=== PATIENT | female | born 1950 | race Caucasian/White ===

== ENCOUNTER 2023-12-02 20:21 | Emergency (ER) | payer MEDICARE, BC, SELFPAY ==
[2023-12-02 20:21] VITALS: BMI 24.9
[2023-12-02 20:31] VITALS: BP 101/74
--- NOTE | 2023-12-02 22:13 | ED.GENMED ---
History of Present Illness
General
Chief Complaint: Musculo-Skeletal Complaint
Source: patient
Exam Limitations: none
Time Seen by Provider: 12/02/23 22:01
Nursing documentation reviewed up to this point in time: agreed with
History of Present Illness
History of Present Illness:
Pleasant 73-year-old female that presents with left ankle pain. She was walking her dog on a leash when the leash got caught around her's foot. The dog sprinted away from her when her grandkids arrived, pulling her to the ground.
Review of Systems
Review of Systems
Allergies reviewed?: Yes
All Other Systems: ROS reviewed and negative except as documented in HPI and ROS
Constitutional: Reports no symptoms
EENT: Reports no symptoms
Respiratory: Reports no symptoms
Cardiac: Reports no symptoms
ABD/GI: Reports no symptoms
: Reports no symptoms
Musculoskeletal: Reports joint pain and joint swelling
Skin: Reports no symptoms
Neurological: Reports no symptoms
Endocrine: Reports no symptoms
Hematologic/Lymphatic: Reports no symptoms
Psychiatric: Reports anxiety
Phy Exam
General Physical Exam
General Presentation: well appearing and mild distress (Ice located on her left ankle)
General age: appears stated age
General Skin: warm and dry
General Habitus: normal
General Mental: alert
General Hydration: appears well hydrated
ENT Exam
ENT Exam: swallowing well and other (Dentition intact)
Cardiovascular Exam
Cardiovascular Exam: regular rate/rhythm and no edema
Pulmonary Exam
Pulmonary Exam: lungs clear and no respiratory distress
Neurological Exam
Neurological Exam: alert and oriented x3
Musculoskeletal Exam
Musculoskeletal Exam: no edema, joint swelling and neuro vasc intact (Good distal pulses)
Skin Exam
Skin Exam: normal color and warm/dry
Psychiatric Exam
Psychiatric Exam: normal mood/affect
Course
Orders/Labs/Results
Orders:
Orders
12/02/23 20:33
CR Ankle - Left Min 3 Views Urgent
Comment:
Reason For Exam: injury, fall
12/02/23 22:26
Fentanyl Citrate/Pf [Sublimaze] 50 mcg IV NOW STA
12/02/23 23:02
Ankle, left 3 view CR [CR Ankle - Left Min 3 Views ] Urgent
Comment:
Reason For Exam: post reduction
Vital Signs
Initial and Last Documented VS:
Initial Vital Signs
Temp Pulse Resp BP Pulse Ox
98.7 F 82 18 101/74 98
12/02/23 20:31 12/02/23 20:31 12/02/23 20:31 12/02/23 20:31 12/02/23 20:31
Last Documented Vital Signs
Temp Pulse Resp BP Pulse Ox
98.7 F 74 17 157/63 98
12/02/23 20:31 12/02/23 22:48 12/02/23 22:48 12/02/23 22:48 12/02/23 22:48
*Radiology
Radiology exam reviewed: radiology read reviewed
*Pulse Oximetry
Patient hypoxic: no
*Critical Care Note
Total Time (30-74mins, 75-104mins- exclusive of procedures): Not Applicable
Update Note
Update Note:
After speaking with Dr. Bhatti, orthopedic surgery, fracture was reduced. We used fentanyl. Patient tolerated procedure well. We did have some difficulty keeping the reduction in place. Patient was immediately splinted. Good post reduction
pulse motor and sensory achieved. Postreduction films show slight improvement. Patient to follow-up with Dr. Fried, orthopedic surgery.
Patient refused pain medications. Will take Tylenol and Motrin for pain
ED Attending Note
-
Portions of this chart may have been created with voice recognition software.� Occasional wrong word or��sound alike� substitutions may have occurred due to the inherent limitations of voice recognition software.
Discharge Plan
Departure
Patient Disposition: Home (Routine Discharge)
Date of Disposition: 12/02/23
Time of Disposition: 23:30
Patient with high blood pressure during this ER visit?: Yes
Condition: Good
Discharge Problem:
Closed displaced trimalleolar fracture of left ankle
Instructions: Ankle Fracture (DC), BLOOD PRESSURE, How to Use Crutches, Using Cold for Pain
Referrals:
Elena Bingham CRNP [Family Provider] -
Joao Fried DPM [Active] - Next open appointment
Activity Restrictions/Additional Instructions:
Tylenol, Motrin, and ice for pain
It was a pleasure meeting you and taking part in your care. We hope for your continued healing and wellness.
Please read discharge instructions in their entirety. However, they are for general education and may not describe your exact diagnosis at discharge. Information on your ER visit and medical conditions were discussed with you along with appropriate
follow up information...
If indicated, please take your medications as instructed and indicated on discharge paperwork.
Please schedule a follow up appointment as directed. Call to schedule an appointment
Please return to the emergency department with ANY change in, persisting, or worsening of symptoms. If any of your symptoms do not improve, or persist, or become more severe within 6-12 hours, please return to the emergency department for further
care.
Please return to the emergency department if you develop a headache, neck pain/stiffness, fever greater than 100.4F, chest pain, shortness of breath, persistent nausea, vomiting, slurred speech, difficulty walking, numbness/tingling, weakness, signs
of infection or any other symptoms that are worrisome to you.
If you have any questions or concerns please do not hesitate to call the Hospital at or E-mail me directly at [email or web address]
Interventions
Interventions:
*Risk Screen - Suicide Last Done: 12/02/23 22:55
*General Assessment Last Done: 12/02/23 22:49
*Neglect/Abuse Screening Last Done: 12/02/23 22:55
*ED COVID-19 Vaccine History Last Done: 12/02/23 22:49
ED-Musculoskeletal Assessment Last Done: 12/02/23 22:54
Discharge Date and Time
Print Language: POLISH
[2023-12-02] MEDS: SUBLIMAZE 50 MCG IV (22:44)
[2023-12-02 22:48] VITALS: BP 157/63
[2023-12-02 23:00] VITALS: BP 155/62
== END 2023-12-03 00:08 | disposition home or self-care (01) ==
LOC: EMR 20:21
PROVIDERS: EMERGENCY PHYSICIAN Student in an Organized Health Care Education/Training Program; FAMILY PHYSICIAN Nurse Practitioner
DX: S82.852A Displaced trimalleolar fracture of left lower leg, initial encounter for closed fracture (principal); W19.XXXA Unspecified fall, initial encounter; Y93.K1 Activity, walking an animal
CPT/HCPCS: 99283; 27818; 96374; 73610

== ENCOUNTER 2023-12-03 05:39 | Inpatient (IN) | payer MEDICARE, BC, SELFPAY ==
[2023-12-03] VITALS (12 sets, daily range): BP systolic 96–156; BP diastolic 44–75; BMI 24.4; BMI 23.7
--- NOTE | 2023-12-03 04:33 | ED.MUSCINJ ---
HPI-Injury
General
Chief Complaint: Musculo-Skeletal Complaint
Source: patient and significant other
Exam Limitations: none
Time Seen by Provider: 12/03/23 03:58
Nursing documentation reviewed up to this point in time: agreed with
History of Present Illness-Injury
Initial Injury comments:
Pleasant 73-year-old female presents with left leg pain. Patient was seen in the emergency department earlier, by myself, after tripping over her dog leash and sustaining a trimalleolar fracture of her left ankle. The ankle was reduced slightly
and a splint was placed. Patient was discharged with crutches at her insistence and went home. At home she was walking with her crutches shortly after arrival, and felt sharp pain in the legs causing her to fall. She did not hit her head or lose
consciousness but sustained a slight abrasion to her right elbow as well as increased pain in no numbness in the left foot and ankle. Denies any other injuries.
Review of Systems
Review of Systems
Allergies reviewed?: Yes
Other source history: family
All Other Systems: ROS reviewed and negative except as documented in HPI and ROS
Constitutional: Reports no symptoms
EENT: Reports no symptoms
Respiratory: Reports no symptoms
Cardiac: Reports no symptoms
ABD/GI: Reports no symptoms
: Reports no symptoms
Musculoskeletal: Reports no symptoms
Skin: Reports no symptoms
Neurological: Reports no symptoms
Endocrine: Reports no symptoms
Hematologic/Lymphatic: Reports no symptoms
Psychiatric: Reports anxiety
Phy Exam
General Physical Exam
General Presentation: well appearing
General age: appears stated age
General Skin: warm
General Mental: alert
Cardiovascular Exam
Cardiovascular Exam: regular rate/rhythm
Musculoskeletal Exam
Musculoskeletal Exam: edema and neuro vasc intact
Skin Exam
Skin Exam: normal color and warm/dry
Psychiatric Exam
Psychiatric Exam: normal mood/affect and anxious
Injury Course
Orders/Labs/Results
Orders:
Orders
12/03/23 03:55
Ankle, left 3 view CR [CR Ankle - Left Min 3 Views ] Urgent
Comment:
Reason For Exam: hx ankle fracture, fell, L great toe numb
12/03/23 04:25
Oxycodone/Acetaminophen [Percocet 5/325] 1 tablet PO NOW STA
12/03/23 04:51
Complete Blood Count/With Diff Urgent
Comprehensive Metabolic Panel Urgent
PTT Urgent
Prothrombin Time Urgent
12/03/23 05:15
Admit/Transfer Patient As Directed
Co-Sign Provider:
Level of Care: Inpatient admission
Assign to:: Medical/Surgical
Physician / Group: [email or web address]
Diagnosis: Closed displaced trimalleolar Fx. of left ankle s/p mechanical fall
Reason for Hospitalization: Closed displaced trimalleolar Fx. of left ankle s/p mechanical fall
Expected length of stay greater than two midnights?: Yes
ELOS- Estimated Length of Stay in days: 3
I certify the patient meets the requirements for IP care: Yes
12/03/23 05:16
Code Status As Directed
Resuscitation Status: Full Code
12/03/23 Breakfast
NPO
Allow oral meds: Yes
Allow clear liquids: Sips of Clears
NPO with Ice Chips: Yes
12/03/23 06:43
HYDROmorphone [Dilaudid] 0.5 mg IV Q3HPRN PRN
Magnesium Hydroxide [Milk of Magnesia] 30 ml PO DAILYPRN PRN
Oxycodone [Roxicodone] 5 mg PO Q4HPRN PRN
Tamsulosin [Flomax] 0.4 mg PO DAILYPRN PRN
12/03/23 06:43
ORTHOPEDIC CONSULT Routine
Consulting Provider: Onofre Bhatti
Was physician already notified: Yes
Reason for consult: Closed displaced trimalleolar Fx. of left ankle s/p mechanical fall
Activity As Directed
Activity Level: With Assistance
Bladder Scan As Directed
Follow Bladder Retention/Intermittent Cath Algorithm?: Yes
PRN if no void in __ hours: 6
Comment: if not voiding 6 hrs upon arrival to floor, bladder scan & follow algorithm
Intake/ Output As Directed
Frequency: Per unit guidelines
Pneumatic Compression Sleeves As Directed
Type: Knee high
Straight Cath As Directed
Frequency: Per Retention Algorithm
Additional Instructions: straight cath as needed per acute urinary retention algorithm for 24 hrs
Additional Instructions: for bladder scan greater than 400 mL
Vital Signs As Directed
Frequency: Per unit guidelines
DX Deep Vein Thrombosis Video Routine
12/03/23 08:00
Acetaminophen [Tylenol] 650 mg PO Q4HWA
12/03/23 20:00
Docusate Sodium [Colace] 100 mg PO BID
Sennosides [Senokot] 17.2 mg PO BID
Abnormal Lab Results
12/03/23
04:51
MCHC 32.6 L g/dL
(33.0-37.0)
MPV 10.5 H fL
(7.4-10.4)
Abs Immat Gran (auto) 0.1 H 10^3/uL
(0-0.05)
Absolute Neuts (auto) 8.3 H 10^3/uL
(1.4-6.5)
Absolute Lymphs (auto) 0.7 L 10^3/uL
(1.2-3.4)
Absolute Monos (auto) 0.7 H 10^3/uL
(0.1-0.6)
Immature Gran % 0.6 H %
(0-0.5)
Neutrophils % 84.3 H %
(42.2-75.2)
Lymphocytes % 7.5 L %
(20.5-51.1)
Carbon Dioxide 31 H mmol/L
(22-30)
Glucose 121 H mg/dl
(70-99)
12/03/23 04:51
12/03/23 04:51
*Critical Care Note
Total Time (30-74mins, 75-104mins- exclusive of procedures): Not Applicable
ED Attending Note
-
Portions of this chart may have been created with voice recognition software.� Occasional wrong word or��sound alike� substitutions may have occurred due to the inherent limitations of voice recognition software.
Discharge Plan
Departure
Patient Disposition: Admit
Date of Disposition: 12/03/23
Time of Disposition: 04:40
Admit to: Med/Surg
Presentation/result/management discussed w/ accepting MD/DO: Hospitalist
Discharge Problem:
Closed trimalleolar fracture
Interventions
Interventions:
*Risk Screen - Suicide Last Done: 12/03/23 03:47
*General Assessment Last Done: 12/03/23 03:47
*Neglect/Abuse Screening Last Done: 12/03/23 03:47
ED- Fall Risk Assessment Last Done: 12/03/23 03:54
*ED COVID-19 Vaccine History Last Done: 12/03/23 03:47
*Nursing Disposition Last Done: 12/03/23 06:23
ED-Musculoskeletal Assessment Last Done: 12/03/23 04:53
Discharge Date and Time
Discharge Date/Time: 12/03/23 06:25
[2023-12-03 05:06] LABS: % Basophils 0.4 % (0-2); % Eosinophils 0.5 % (0-6); % Immature Granulocytes 0.6 % (0-0.5); % Lymphocytes 7.5 % (20.5-51.1); % Monocytes 6.7 % (1.7-9.3); % Neutrophils 84.3 % (42.2-75.2); Absolute Eosinophils 0.1 10^3/uL (0-0.7); Absolute Immature Granulocytes 0.1 10^3/uL (0-0.05); Absolute Lymphocytes 0.7 10^3/uL (1.2-3.4); Absolute Monocytes 0.7 10^3/uL (0.1-0.6); Absolute Neutrophils 8.3 10^3/uL (1.4-6.5); Hematocrit 43.8 % (37.0-47.0); Hemoglobin 14.3 g/dL (12.0-16.0); Mean Corp Hgb Conc. 32.6 g/dL (33.0-37.0); Mean Corpuscular Hgb 28.7 pg (27.0-31.0); Mean Corpuscular Volume 87.8 fL (81.0-99.0); Mean Platelet Volume 10.5 fL (7.4-10.4); Nucleated Red Blood Cells % 0 %; Platelet Count 216 10^3/uL (130-400); Red Blood Cell Count 4.99 10^6/uL (4.20-5.40); Red Cell Dist. Width 12.7 % (11.5-14.5); White Blood Cell Count 9.8 10^3/uL (4.8-10.8)
--- NOTE | 2023-12-03 05:10 | HPS.HSE ---
Addendum entered and electronically signed by John Love MD 12/03/23 11:55:
Per over night ER attd, he will text Ortho before changing of the shift
Original Note:
Family Physician
-
Family Physician: SASHA Sheikh
Chief Complaint
-
Lt daen Fx s/p fall
History of Present Illness
73F with no known significant PMHx seen at ER on 12/01 for Lt ankle pain s/p mechanical fall while walking the dog and leash got caught around her Lt foot. XR POS for closed displaced trimalleolar Fx. of left ankle s/p partially reduced at ER and
sent home with crutches.case was consulted with Dr Bhatti/Ortho.
At home, she fall again while walking with crutches.
She sustained slight abrasion to her right elbow as well as increased pain in no numbness in the left foot and ankle.
Medical History
Past Medical History
Past Medical History: Reports None
Past Surgical History: Reports None
Social History
Tobacco: Non-smoker
Alcohol: None
Drug: None
Family History
Family History: Not pertinent
Allergies / Home Medications
Allergies reflects when Allergies were last updated in [employer].
Home Medications with original date entered in [employer]
Allergy/Medication List:
Allergies
Allergy/AdvReac Type Severity Reaction Status Date / Time
adhesive Allergy Unknown Verified 12/03/23 03:47
Penicillins Allergy Unknown Verified 12/03/23 03:47
Sulfa (Sulfonamide Allergy Unknown Verified 12/03/23 03:47
Antibiotics)
If medication reconciliation has not been performed, why?: Medication List N/A
Review of Systems
-
Constitutional: Reports No Symptoms
EENT: Reports No Symptoms
Respiratory: Reports No Symptoms
Cardiac: Reports No Symptoms
Abdomen/GI: Reports No Symptoms
: Reports No Symptoms
Musculoskeletal: Reports See HPI
Skin: Reports No Symptoms
Neurological: Reports No Symptoms
Endocrine: Reports No Symptoms
Hematologic/Lymphatic: Reports No Symptoms
Psych: Reports No Symptoms
Physical Exam
Vital Signs
Vital Signs
Temp Pulse Resp BP Pulse Ox
98.5 F 71 16 156/67 98
12/03/23 03:47 12/03/23 03:47 12/03/23 03:47 12/03/23 03:47 12/03/23 03:47
Physical Exam
General: Well Developed, Well Nourished and No Apparent Distress
HEENT: NormoCephalic, Moist mucous membranes and Atraumatic
Respiratory: Clear
Cardiac: S1/S2 and Regular Rhythm; No Murmur or Rub
GI: Soft, Non Tender, Non Distended and Normal Bowel Sounds; No Organomegaly
Rectal: Deferred by Provider
Musculoskeletal: No Clubbing, No Cyanosis, No Edema and Other (Lt ankle pain )
Skin: No Rash
Neuro: Nonfocal/grossly intact
Laboratory Results
-
pending labs
Data Reviewed
-
Diagnostic Radiology: Report Reviewed by me
Impression/Plan
-
Reviewed VS: unremarkable
Data
Pending admission labs
12/02/23 XR
Acute trimalleolar Fx with lateral tibiotalar subluxation
NO PRIOR hospitalist admission:
ASSESSMENT & PLAN
Pending Rx reconciliation
Closed displaced trimalleolar Fx. of left ankle
S/p mechanical fall while Lt ankle got caught with leash of runaway pet dog ( 50 lbs blood hound)
S/p second fall at home while walking with crutches s/p DC'd from ER
Acute gait dysfunction
- Fx set protocol
- NPO and IVF
- PRN narcotic analgesia
- Ortho consulted
No significant PMHx
No regular Meds
DVT Px: SCD to Rt Diony
Code: Full
IP MS
[2023-12-03 05:19] LABS: ALT (SGPT) 22 U/L (0-35); AST (SGOT) 33 U/L (14-36); Albumin 4.3 g/dl (3.5-5.0); Alkaline Phosphatase 96 U/L (38-126); Blood Urea Nitrogen 17 mg/dl (7-17); Calcium 9.4 mg/dl (8.4-10.2); Carbon Dioxide 31 mmol/L (22-30); Chloride 104 mmol/L (98-107); Estimated Creatinine Clearance 65 ml/min; Glucose 121 mg/dl (70-99); INR 1.02; PT 13.4 Sec (11.4-14.6); Potassium 4.5 mmol/L (3.5-5.1); Sodium 141 mmol/L (135-145); Total Bilirubin 0.9 mg/dl (0.2-1.3); Total Protein 6.9 g/dl (6.3-8.2); eGFR > 60.00
[2023-12-03 05:20] LABS: APTT 27.1 Sec (23.4-35.0)
[2023-12-03] MEDS: TYLENOL 650 MG PO ×4 (07:20→20:54)
--- NOTE | 2023-12-03 12:54 | W.PN.UPDATE ---
Update Note
Progress Note Update
This note serves as supplemental to history and physical dated today
Follow-up orthopedics regarding plan of intervention for fracture
Pain control
--- NOTE | 2023-12-03 13:11 | W.PN.UPDATE ---
Update Note
Progress Note Update
73-year-old female with left no reduced trimalleolar ankle fracture sustained 02 December 2023.
-Imaging was shown and reviewed with the patient. Given this is failed closed reduction patient is recommended for operative invention but staging to reduce her risk of postoperative infection with external fixation application.
-Discussed with Dr. Fried as well as operative room; will plan for surgery today approximately 1600 for left ankle reduction and external fixation application versus open reduction and internal fixation with Dr. Fried
-Recommend continued elevation and ice to the left lower extremity to reduce as much swelling as possible
-Will update postoperative recommendations. Consent obtained and placed in the chart
[2023-12-03] MEDS: ANCEF 10 IV (16:46)
--- NOTE | 2023-12-03 16:47 | CON.ORTHO ---
Consultation
-
Date/Time Consultation Requested: 03 December 2023 0643
Date/Time Consultation Performed: 03 December 2023 1230
Requesting Provider: Dr. John Love
Performing Provider: BJ Cruz, Dr. Onofre Bhatti
Reason for Consultation: left ankle fracture
Consultation - Orthopedics
History
73-year-old female presenting to [facility] after sustaining a mechanical fall on 02 December 2023 after being pulled by a dog leash wrapped around her leg. She noticed significant deformity afterward and inability bear weight. She was seen
at the emergency room at [facility] and underwent attempted closed reduction and recommended for outpatient follow-up after discussion with orthopedics on-call. She reports at home but ambulating on 1 leg she misstepped and caught her foot with
subsequent reinjury of the left ankle and return to the emergency room. She reports secondary splinting. She reports pain is well-controlled at this time and some occasional mild numbness but denies any motor weakness. Isolated closed injury
Allergies / Home Medications
Past medical history: Denied
Pertinent past surgical history: Denied
Medications: Denied; see list
Allergies: See list
Social history: Community ambulator, no tobacco use or significant alcohol consumption. No illicit drug use
Family history: Noncontributory
12 point review of systems: Negative other described in history of present illness
Allergy/AdvReac Type Severity Reaction Status Date / Time
adhesive Allergy Unknown Verified 12/03/23 03:47
Penicillins Allergy Unknown Verified 12/03/23 03:47
Sulfa (Sulfonamide Allergy Unknown Verified 12/03/23 03:47
Antibiotics)
Vital Signs / Lab Results
Temp Pulse Resp BP Pulse Ox
97.8 F 67 17 131/62 97
12/03/23 15:57 12/03/23 15:57 12/03/23 15:57 12/03/23 15:57 12/03/23 15:57
Physical examination:
General: Patient is well-nourished well-developed no acute distress conscious and oriented person place time and event
Musculoskeletal: Focused examination of the left lower extremity shows a simple posterior slab splint. There is swelling and effusion of the left ankle. She is able demonstrate motor intact with firing EHL as well as tibialis anterior. Slight
subjective numbness over the anterior lower leg but overall sensation is intact to light touch in the superficial peroneal deep peroneal sural saphenous and tibial nerve. Palpable dorsalis pedis pulse and brisk capillary refill less than 2 seconds.
There is some mild skin wrinkles present but overall significant swelling as expected
Imaging: X-rays taken previously include 3 different sets; most recent x-rays reviewed show lateral tibiotalar subluxation 9 mm / 50% translation. There is a small posterior malleolus fracture, spiral fracture of the distal fibula with significant
shortening and displacement and a displaced medial malleolus fracture
12/03/23 04:51
12/03/23 04:51
Assessment / Plan
73-year-old female admitted to [facility] for a displaced trimalleolar left ankle fracture with injury 02 December 2023 with a mechanical fall with original discharge towards home and return to ER after a subsequent fall with persisting
subluxation after previous attempted reduction in the emergency room
Imaging was shown and reviewed with the patient. Patient's imaging was reviewed with Dr. Fried as well as clinical examination. Given the patient has been refractory towards manual reduction with amount of translation and displacement that she
has discussed consideration of external fixation but will also require definitive fixation to reduce her risk of chronic instability and posttraumatic arthritis of the left ankle. We discussed the differentiation and intended purpose of external
fixation versus definitive open reduction and internal fixation; discussed this to be at the discretion of Dr. Fried he has with the early postoperative swelling if there may be difficulty with skin closure and increases the risk of infection.
For the time being plan is external fixation with follow-up in [address] Fried for planning of definitive ORIF.
The condition/injury and respective operative and non-operative interventions were reviewed with the patient to include the risks, benefits, rehabilitation, and prognosis for each. The treatment/operative technique, follow-up, rehabilitation, and
prognosis were reviewed with the patient. Surgical risks were discussed which include but not limited to infection, blood loss, CRPS, possible need for further surgeries, damage to local structures, and possible loss of life or limb. After thorough
counseling and answering all questions, the patient wished to proceed with operative intervention of left ankle fracture reduction with external fixation versus open reduction internal fixation with Dr. Fried. The patient verified understanding of
the treatment plan and all questions were answered to satisfaction.
Plan for OR today for left ankle reduction and external fixation application versus open reduction internal fixation with Dr. Fried
-Consent obtained and in chart
-Antibiotics on-call to the OR with expectation of test dose of Ancef
-Continue n.p.o.
--- NOTE | 2023-12-03 17:31 | W.PN.UPDATE ---
Update Note
Progress Note Update
S/p Left ankle Ex fix application
-strict NWB LLE
-Ancef q8x3 doses
-Dressings C/D/I
-Plan for definative ORIF 12/07/23
[2023-12-03] MEDS: ROXICODONE 5 MG PO (18:07)
[2023-12-03] MEDS: SENOKOT 17.1999999999999993 MG PO (20:54)
[2023-12-03] MEDS: COLACE 100 MG PO (20:54)
[2023-12-04] MEDS: ANCEF 5 IV (00:16)
[2023-12-04] MEDS: TYLENOL PO ×3 (00:17→03:46)
[2023-12-04 07:00] VITALS: BP 127/56
[2023-12-04 07:48] LABS: Hematocrit 40.4 % (37.0-47.0); Hemoglobin 14.1 g/dL (12.0-16.0); Mean Corp Hgb Conc. 34.9 g/dL (33.0-37.0); Mean Corpuscular Hgb 29.5 pg (27.0-31.0); Mean Corpuscular Volume 84.5 fL (81.0-99.0); Mean Platelet Volume 10.7 fL (7.4-10.4); Platelet Count 184 10^3/uL (130-400); Red Blood Cell Count 4.78 10^6/uL (4.20-5.40); Red Cell Dist. Width 12.6 % (11.5-14.5); White Blood Cell Count 8.5 10^3/uL (4.8-10.8)
[2023-12-04] MEDS: TYLENOL 650 MG PO ×4 (07:52→21:38)
[2023-12-04] MEDS: COLACE 100 MG PO ×2 (07:53→21:38)
[2023-12-04] MEDS: SENOKOT 17.1999999999999993 MG PO ×2 (07:53→21:38)
[2023-12-04 08:10] LABS: ALT (SGPT) 18 U/L (0-35); AST (SGOT) 28 U/L (14-36); Albumin 3.8 g/dl (3.5-5.0); Alkaline Phosphatase 82 U/L (38-126); Blood Urea Nitrogen 20 mg/dl (7-17); Calcium 9.2 mg/dl (8.4-10.2); Carbon Dioxide 25 mmol/L (22-30); Chloride 106 mmol/L (98-107); Estimated Creatinine Clearance 65 ml/min; Glucose 118 mg/dl (70-99); Potassium 4.6 mmol/L (3.5-5.1); Sodium 137 mmol/L (135-145); Total Bilirubin 0.8 mg/dl (0.2-1.3); Total Protein 6.2 g/dl (6.3-8.2); eGFR > 60.00
--- NOTE | 2023-12-04 11:42 | W.PN.UPDATE ---
Update Note
Progress Note Update
Appreciate the primary team. Patient doing well POD #1 from left ankle Ex-Fix ([facility] 03 December 2023). Dressings remain. Strict NWB LLE. ice and elevation. Pain control. Plan for definitive ORIF left ankle on Wednesday via Dr. Fried
--- NOTE | 2023-12-04 13:01 | W.PN.HOSP.TC ---
Today's Communication/Plan
-
pain control
dvt ppx
ORIF left ankle on Wednesday
Assessment / Plan
Assessment / Plan
Physical Exam
General: Well Developed, Well Nourished and No Apparent Distress
HEENT: NormoCephalic, Moist mucous membranes and Atraumatic
Respiratory: Clear
Cardiac: S1/S2 and Regular Rhythm; No Murmur or Rub
GI: Soft, Non Tender, Non Distended and Normal Bowel Sounds; No Organomegaly
Rectal: Deferred by Provider
Musculoskeletal: No Clubbing, No Cyanosis, No Edema and Other (Lt ankle splint in place )
Skin: No Rash
Neuro: Nonfocal/grossly intact
#Closed displaced trimalleolar Fx. of left ankle
#POD #1 from left ankle Ex-Fix ([facility] 03 December 2023)
S/p mechanical fall while Lt ankle got caught with leash of runaway pet dog ( 50 lbs blood hound)
Dressings remain. Strict NWB LLE. ice and elevation. Pain control. Plan for definitive ORIF left ankle on Wednesday
- Fx set protocol
- diet
- PRN narcotic analgesia
No significant PMHx
No regular Meds
DVT Px: HSQ
Code: Full
Anticipated Discharge: > 48 hours
Subjective/Interval History
-
Date of Service: December 04, 2023
Status post left ankle Ex-Fix; tolerating well
Objective Data
-
Labs:
Laboratory Results
12/04/23
07:28
WBC 8.5
Hgb 14.1
Hct 40.4
Plt Count 184
Sodium 137
Potassium 4.6
Chloride 106
Carbon Dioxide 25
BUN 20 H
Creatinine 0.5 L
Glucose 118 H
Calcium 9.2
Total Bilirubin 0.8
AST 28
ALT 18
Alkaline Phosphatase 82
Vital Signs:
Vital Signs
Temp Pulse Resp BP Pulse Ox
97.6 F 63 16 127/56 98
12/04/23 07:00 12/04/23 07:00 12/04/23 07:00 12/04/23 07:00 12/04/23 07:00
I&O
12/03/23 12/04/23 12/05/23
06:59 06:59 06:59
Intake Total 120 / 120
Balance 120 / 120
Review of Systems
-
History Source: Patient
All other systems: Not reviewed unless documented
Data Reviewed
-
Diagnostic Radiology: Image personally visualized and interpreted and Report Reviewed by me
Labs: Labs Reviewed by me
[2023-12-04 15:00] VITALS: BP 126/58
[2023-12-04] MEDS: HEPARIN 5000 UNITS SC (16:37)
[2023-12-04 19:00] VITALS: BP 137/56
[2023-12-04] MEDS: ROXICODONE 5 MG PO (21:37)
[2023-12-04 23:00] VITALS: BP 120/57
[2023-12-05] MEDS: TYLENOL 650 MG PO ×5 (00:12→21:18)
[2023-12-05] MEDS: HEPARIN 5000 UNITS SC ×3 (00:13→17:28)
[2023-12-05] MEDS: TYLENOL PO (03:45)
[2023-12-05 07:00] VITALS: BP 100/57
[2023-12-05 07:39] LABS: Hematocrit 40.2 % (37.0-47.0); Hemoglobin 13.3 g/dL (12.0-16.0); Mean Corp Hgb Conc. 33.1 g/dL (33.0-37.0); Mean Corpuscular Hgb 28.9 pg (27.0-31.0); Mean Corpuscular Volume 87.4 fL (81.0-99.0); Platelet Count 179 10^3/uL (130-400); Red Cell Dist. Width 13.1 % (11.5-14.5); White Blood Cell Count 7.3 10^3/uL (4.8-10.8)
[2023-12-05 08:17] LABS: Blood Urea Nitrogen 15 mg/dl (7-17); Calcium 9.2 mg/dl (8.4-10.2); Carbon Dioxide 27 mmol/L (22-30); Chloride 105 mmol/L (98-107); Estimated Creatinine Clearance 65 ml/min; Glucose 94 mg/dl (70-99); Sodium 139 mmol/L (135-145); eGFR > 60.00
--- NOTE | 2023-12-05 08:49 | W.PN.HOSP.TC ---
Today's Communication/Plan
-
pain control
tentative ORIF tomorrow; npo at [facility]
Assessment / Plan
Assessment / Plan
Physical Exam
General: Well Developed, Well Nourished and No Apparent Distress
HEENT: NormoCephalic, Moist mucous membranes and Atraumatic
Respiratory: Clear
Cardiac: S1/S2 and Regular Rhythm; No Murmur or Rub
GI: Soft, Non Tender, Non Distended and Normal Bowel Sounds; No Organomegaly
Rectal: Deferred by Provider
Musculoskeletal: No Clubbing, No Cyanosis, No Edema and Other (Lt ankle splint in place )
Skin: No Rash
Neuro: Nonfocal/grossly intact
#Closed displaced trimalleolar Fx. of left ankle
#POD #2 from left ankle Ex-Fix (Fariha 03 December 2023)
S/p mechanical fall while Lt ankle got caught with leash of runaway pet dog ( 50 lbs blood hound)
-Dressings remain. Strict NWB LLE. ice and elevation.
-Plan for definitive ORIF left ankle on Wednesday
- diet
- PRN narcotic analgesia
No significant PMHx
No regular Meds
DVT Px: HSQ
Code: Full
Anticipated Discharge: > 48 hours
Subjective/Interval History
-
Date of Service: December 05, 2023
No acute events
Objective Data
-
Labs:
Laboratory Results
12/05/23
06:44
WBC 7.3
Hgb 13.3
Hct 40.2
Plt Count 179
Sodium 139
Potassium 4.0
Chloride 105
Carbon Dioxide 27
BUN 15
Creatinine 0.5 L
Glucose 94
Calcium 9.2
Vital Signs:
Vital Signs
Temp Pulse Resp BP Pulse Ox
97.7 F 59 16 100/57 98
12/05/23 07:00 12/05/23 07:00 12/05/23 07:00 12/05/23 07:00 12/05/23 07:00
I&O
12/04/23 12/05/23 12/06/23
06:59 06:59 06:59
Intake Total 120 / 120 1440 / 1440
Balance 120 / 120 1440 / 1440
Review of Systems
-
History Source: Patient
All other systems: Not reviewed unless documented
Data Reviewed
-
Diagnostic Radiology: Image personally visualized and interpreted and Report Reviewed by me
Labs: Labs Reviewed by me
[2023-12-05] MEDS: SENOKOT 17.1999999999999993 MG PO (08:54)
[2023-12-05] MEDS: COLACE 100 MG PO (08:55)
--- NOTE | 2023-12-05 09:43 | CM ---
Met with patient at the bedside; initial assessment completed
Left ankle fracture s/p Fall; scheduled for OR tomorrow ORIF
Requested that daughter, Melody Longo RN # [phone], be Primary Contact. She lives in [place]
Pharmacy verified: [facility]
Patient and live in multilevel home in [place], [place] ; 2 steps to enter; 12-13 steps between floors; powder room on the 1t floor; 2nd floor bedroom and bath.
Patient reported that has health issues
@ Discharge, Patient is going to recuperate at daughter's home in [place]. Daughter is w/5 children; her home as a bedroom and bathroom (toilet & sink) on 1st floor.
Home has 2 steps to enter; 12 steps to 2nd floor; stairs have railings; daughter will be able to assist mother up stairs to bathe in full bath; tub has a bath bench.
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
DME: using Crutches for ambulation; and will have them post-op
SNF/Rehab/Home Health utilization history: none
Transportation: will provide ride home from hospital
Plan: Discharge to daughter's home when stable; no needs anticipated
--- NOTE | 2023-12-05 11:54 | W.PN.UPDATE ---
Update Note
Progress Note Update
Appreciate the primary team. Patient doing well POD #2 from left ankle Ex-Fix (Fariha 03 December 2023). Dressings remain. Strict NWB LLE. ice and elevation. Pain control. Plan for definitive ORIF left ankle on Wednesday via Dr. Fried. Surgical
and blood consents have been signed and placed on the patient's chart. Patient to be NPO pMN tonight. ABX and irrigation products are mailroom personnel. Will follow
[2023-12-05 15:00] VITALS: BP 136/55
[2023-12-05] MEDS: SENOKOT PO ×2 (21:18→21:30)
[2023-12-05] MEDS: COLACE PO ×2 (21:18→21:30)
[2023-12-05 23:00] VITALS: BP 128/66
[2023-12-06] VITALS (9 sets, daily range): BP systolic 120–146; BP diastolic 40–75
[2023-12-06] MEDS: HEPARIN 5000 UNITS SC ×2 (00:26→20:01)
[2023-12-06] MEDS: TYLENOL 650 MG PO ×3 (00:27→20:02)
[2023-12-06] MEDS: TYLENOL PO ×4 (03:58→21:39)
[2023-12-06 07:28] LABS: Hematocrit 38.7 % (37.0-47.0); Hemoglobin 13.6 g/dL (12.0-16.0); Mean Corp Hgb Conc. 35.1 g/dL (33.0-37.0); Mean Corpuscular Hgb 29.4 pg (27.0-31.0); Mean Corpuscular Volume 83.6 fL (81.0-99.0); Mean Platelet Volume 10.9 fL (7.4-10.4); Platelet Count 150 10^3/uL (130-400); Red Blood Cell Count 4.63 10^6/uL (4.20-5.40); Red Cell Dist. Width 12.8 % (11.5-14.5)
--- NOTE | 2023-12-06 07:36 | W.PN.HOSP.TC ---
Today's Communication/Plan
-
ORIF today
Assessment / Plan
Assessment / Plan
Gen: NAD, AAOx3.
Eyes: EOMI, PERRLA, no scleral icterus.
Neck: supple.
CV: RRR, +S1/S2, no m/r/g.
Resp: CTAB, no rales, wheezes, or rhonchi.
Abd: +BS, soft, NT, ND
Skin: No rashes.
Neuro: CN 2-12 intact, non-focal.
Psych: Normal mood and affect.
Closed displaced trimalleolar fx L ankle:
-due to mechanical fall
-s/p 12/03/23 left ankle Ex-Fix
-ORIF today
FULL/Heparin
Anticipated Discharge: Within 24 hours
Subjective/Interval History
-
Date of Service: December 06, 2023
No new complaints.
Objective Data
-
Labs:
Laboratory Results
12/06/23
06:56
WBC 6.0
Hgb 13.6
Hct 38.7
Plt Count 150
Sodium Pending
Potassium Pending
Chloride Pending
Carbon Dioxide Pending
BUN Pending
Creatinine Pending
Glucose Pending
Calcium Pending
Vital Signs:
Vital Signs
Temp Pulse Resp BP Pulse Ox
97.9 F 59 16 128/66 97
12/05/23 23:00 12/05/23 23:00 12/05/23 23:00 12/05/23 23:00 12/05/23 23:00
I&O
12/05/23 12/06/23 12/07/23
06:59 06:59 06:59
Intake Total 1440 / 1440 960 / 960
Balance 1440 / 1440 960 / 960
--- NOTE | 2023-12-06 07:55 | W.PN.UPDATE ---
Update Note
Progress Note Update
73-year-old female status post left ankle reduction external fixation application 03 December 2023 plan definitive fixation 06 [address] Fried today
-Continue nonweightbearing to left lower extremity
-Consent on file
-N.p.o.
-Antibiotics and irrigation orders on file
[2023-12-06 07:57] LABS: Blood Urea Nitrogen 14 mg/dl (7-17); Calcium 9.4 mg/dl (8.4-10.2); Carbon Dioxide 24 mmol/L (22-30); Chloride 107 mmol/L (98-107); Estimated Creatinine Clearance 65 ml/min; Glucose 91 mg/dl (70-99); Potassium 4.3 mmol/L (3.5-5.1); Sodium 139 mmol/L (135-145); eGFR > 60.00
[2023-12-06] MEDS: COLACE PO (08:15)
[2023-12-06] MEDS: SENOKOT PO ×2 (08:15→21:39)
[2023-12-06] MEDS: HEPARIN SC (16:05)
--- NOTE | 2023-12-06 17:02 | W.PN.UPDATE ---
Update Note
Progress Note Update
s/p left ankle ORIF and ex fix removal
-strict NWB LLE
-pain control prn, home meds sent
-Abx until D/C
-Follow up 2 weeks, okay for DC in AM
--- NOTE | 2023-12-06 19:27 | PTCARENOTE ---
Patient came from [facility] at 1830 following orif of left ankle and removal of external hardware.Neurovascular assessment is within normal limits and ongoing.The dressing is intact with the splint and katheryn wrap.The patient is in her bed with the call
lowery in reach.
[2023-12-06] MEDS: ANCEF 5 IV (20:01)
[2023-12-06] MEDS: COLACE 100 MG PO (20:02)
[2023-12-07] MEDS: HEPARIN 5000 UNITS SC ×2 (01:31→08:50)
[2023-12-07] MEDS: TYLENOL 650 MG PO ×3 (01:31→08:48)
[2023-12-07] MEDS: ANCEF 5 IV ×2 (02:39→10:35)
[2023-12-07 03:05] VITALS: BP 124/68
--- NOTE | 2023-12-07 07:05 | W.PN.UPDATE ---
Update Note
Progress Note Update
Mrs. Awan is resting comfortably in bed this morning. Her pain is well controlled.
Directed exam of LLE reveals splint in place. No signs of skin breakdown to surrounding skin. Able to wiggle toes. Sensation intact to light touch. Cap refill <2secs
73F POD#1 left ankle ORIF and ex fix removal under the direction of Dr. Fried
-strict NWB LLE
-PT/OT
-pain control prn, home meds sent
-Abx until D/C
-splint care reviewed
-Follow up outpatient in 2 weeks
-Stable for discharge
[2023-12-07 07:37] LABS: Hematocrit 40.1 % (37.0-47.0); Hemoglobin 13.4 g/dL (12.0-16.0); Mean Corp Hgb Conc. 33.4 g/dL (33.0-37.0); Mean Corpuscular Hgb 29.1 pg (27.0-31.0); Mean Corpuscular Volume 87.2 fL (81.0-99.0); Mean Platelet Volume 10.9 fL (7.4-10.4); Platelet Count 186 10^3/uL (130-400); Red Cell Dist. Width 12.7 % (11.5-14.5); White Blood Cell Count 11.4 10^3/uL (4.8-10.8)
[2023-12-07 07:45] VITALS: BP 130/61
[2023-12-07 08:06] LABS: Blood Urea Nitrogen 22 mg/dl (7-17); Calcium 9.1 mg/dl (8.4-10.2); Carbon Dioxide 29 mmol/L (22-30); Chloride 102 mmol/L (98-107); Estimated Creatinine Clearance 65 ml/min; Glucose 109 mg/dl (70-99); Potassium 4.2 mmol/L (3.5-5.1); Sodium 136 mmol/L (135-145); eGFR > 60.00
[2023-12-07] MEDS: SENOKOT PO (08:49)
[2023-12-07] MEDS: COLACE PO (08:49)
[2023-12-07 11:14] VITALS: BP 152/79
--- NOTE | 2023-12-07 11:16 | W.PN.HOSP.TC ---
Today's Communication/Plan
-
d/c
Assessment / Plan
Assessment / Plan
Gen: NAD, AAOx3.
Eyes: EOMI, PERRLA, no scleral icterus.
Neck: supple.
CV: remains RRR, +S1/S2, no m/r/g.
Resp: remains CTAB, no rales, wheezes, or rhonchi.
Abd: +BS, soft, NT, ND
Skin: No rashes.
Neuro: remains CN 2-12 intact, non-focal.
Psych: Normal mood and affect.
Closed displaced trimalleolar fx L ankle:
-due to mechanical fall
-s/p 12/03/23 left ankle Ex-Fix
-s/p 12/06/23 left ankle ORIF and ex fix removal under the direction of Dr. Fried
-NWB LLE
FULL/Heparin
Patient requires a lightweight wheelchair due to ambulatory dysfunction. Patient is unable to self-propel in a standard
wheelchair. A walker has been considered, but is clinically ineffective due to patient's condition.
Total time spent on d/c = 31 min. This included today's physical exam, progress note, review of laboratory and diagnostic data, preparation of discharge documents and prescriptions, and discussions about the pt's hospital course and discharge plan
with the patient and other medical imaging tech involved in the patient's care.
Anticipated Discharge: Today
Subjective/Interval History
-
Date of Service: December 07, 2023
Denies chest pain or shortness of breath.
Objective Data
-
Labs:
Laboratory Results
12/07/23
05:20
WBC 11.4 H
Hgb 13.4
Hct 40.1
Plt Count 186 D
Sodium 136
Potassium 4.2
Chloride 102
Carbon Dioxide 29
BUN 22 H
Creatinine 0.5 L
Glucose 109 H
Calcium 9.1
Vital Signs:
Vital Signs
Temp Pulse Resp BP Pulse Ox
98 F 70 18 152/79 97
12/07/23 11:14 12/07/23 11:14 12/07/23 11:14 12/07/23 11:14 12/07/23 11:14
I&O
12/06/23 12/07/23 12/08/23
06:59 06:59 06:59
Intake Total 960 / 960 820 / 820
Balance 960 / 960 820 / 820
[2023-12-07 11:30] VITALS: BP 159/73; PULSE 71
[2023-12-07] MEDS: TYLENOL PO (11:39)
--- NOTE | 2023-12-07 13:44 | W.DCSUMMARY ---
Discharge Summary
Discharge Data
Date of Admission: 12/03/23
Date of Discharge: 12/07/23
-
Pending Results: No
Hospital Course
Primary diagnoses:
Closed displaced trimalleolar fracture of the left ankle s/p 12/03/23 left ankle external fixation and 12/06/23 left ankle open reduction and internal fixation with external fixation removal
Secondary diagnoses:
None
Consultants:
Podiatry
Imaging:
L ankle Xray: Acute trimalleolar fracture with lateral tibiotalar subluxation
Hospital course: 73-year-old female who presented with a mechanical fall resulting in a left ankle fracture examined and H&P done admission. The patient underwent left ankle external fixation on 12/03/23 and left ankle open reduction and internal
fixation with external fixation removal on 12/06/23. She tolerated both procedures well and was discharged in medically stable condition.
Discharge Plan
-
Patient Disposition: Home with Home Care
Discharge Diagnosis/Procedures: Closed displaced trimalleolar fracture of the left ankle s/p 12/03/23 left ankle external fixation and 12/06/23 left ankle open reduction and internal fixation with external fixation removal
Condition: Good
Diet: No restrictions
Activity: Other activity
Additional Activity: NWB LLE
Driving Restrictions: No driving
Other Services: VN
Referrals:
Elena Bingham CRNP [Family Provider] - in less than 1 week
Discharge Orders:
Discharge Patient (As Directed); Ordered 12/07/23
Ordered By: Onofre Mendez
Discharge Date and Time
Discharge Date/Time: 12/07/23 13:36
Print Language: INDONESIAN
--- NOTE | 2023-12-07 15:16 | CM ---
entered order for discharge.
Non wt baring Left leg.Has crutches.
Spoke with pt and daughter who is a RN and will take her to [place] with her.
Daughter requested a wheelchair script from . She will acquire in [place] Script given .
IMM reviewed copy given IMM copy signed on chart.
PLAN Home with family support
== END 2023-12-07 13:36 | disposition home or self-care (01) | DRG 494 ==
LOC: 2 SOUTH 05:39
PROVIDERS: Internal Medicine; Student in an Organized Health Care Education/Training Program; ADMITTING PHYSICIAN Internal Medicine; ATTENDING PHYSICIAN Internal Medicine; CONSULT PHYSICIAN Orthopaedic Surgery; EMERGENCY PHYSICIAN Student in an Organized Health Care Education/Training Program; FAMILY PHYSICIAN Nurse Practitioner
PROC: 0QSH35Z Reposition Left Tibia with External Fixation Device, Percutaneous Approach (ICD-10-PCS; 2023-12-03)
PROC: 0MQR0ZZ Repair Left Ankle Bursa and Ligament, Open Approach (ICD-10-PCS; 2023-12-06)
PROC: 0QPHX5Z Removal of External Fixation Device from Left Tibia, External Approach (ICD-10-PCS; 2023-12-06)
PROC: 0QSH04Z Reposition Left Tibia with Internal Fixation Device, Open Approach (ICD-10-PCS; 2023-12-06)
DX: S82.852A Displaced trimalleolar fracture of left lower leg, initial encounter for closed fracture (principal); S83.012A Lateral subluxation of left patella, initial encounter; S50.311A Abrasion of right elbow, initial encounter; W01.0XXA Fall on same level from slipping, tripping and stumbling without subsequent striking against object, initial encounter; Y93.K1 Activity, walking an animal; Y92.9 Unspecified place or not applicable; Z88.0 Allergy status to penicillin; Z88.2 Allergy status to sulfonamides; Z91.048 Other nonmedicinal substance allergy status
CPT/HCPCS: 27818; 73600; 73610; 76000; 80048; 80053; 85025; 85027; 85610; 85730; 86850; 86900; 86901; 93005; 96374; 97116; 97167; 97530; 99283; 99284; C1713

== ENCOUNTER → 2024-12-30 07:33 | Outpatient (REF) | payer MEDICARE, BC, SELFPAY ==
[2024-12-30 08:44] LABS: Hematocrit 42.3 % (37.0-47.0); Hemoglobin 13.8 g/dL (12.0-16.0); Mean Corp Hgb Conc. 32.6 g/dL (33.0-37.0); Mean Corpuscular Volume 89.6 fL (81.0-99.0); Nucleated Red Blood Cells % 0 %; Platelet Count 213 10^3/uL (130-400); Red Cell Dist. Width 12.4 % (11.5-14.5)
[2024-12-30 09:27] LABS: ALT (SGPT) 18 U/L (0-35); AST (SGOT) 24 U/L (14-36); Albumin 3.9 g/dl (3.5-5.0); Alkaline Phosphatase 78 U/L (38-126); Blood Urea Nitrogen 21 mg/dl (7-17); Calcium 9.6 mg/dl (8.4-10.2); Carbon Dioxide 32 mmol/L (22-30); Chloride 105 mmol/L (98-107); Glucose 93 mg/dl (70-99); HDL Cholesterol 71 mg/dl; LDL Cholesterol, Calculated 110 mg/dl; Potassium 5.2 mmol/L (3.5-5.1); Sodium 139 mmol/L (135-145); Total Protein 6.4 g/dl (6.3-8.2); Very Low Density Lipoprotein 13 mg/dl (0-30); eGFR > 60.00
[2024-12-30 09:57] LABS: TSH 0.55 uIU/ml (0.47-4.68)
== END ==
LOC: REG 07:33
PROVIDERS: ATTENDING PHYSICIAN Nurse Practitioner
DX: E78.5 Hyperlipidemia, unspecified (principal); D72.819 Decreased white blood cell count, unspecified; Z13.820 Encounter for screening for osteoporosis; R53.83 Other fatigue
CPT/HCPCS: 36415; 80053; 80061; 84443; 85025

== ENCOUNTER → 2025-01-29 09:24 | Outpatient (REF) | payer MEDICARE, BC, SELFPAY | LOC: RAD 09:24 | PROVIDERS: ATTENDING PHYSICIAN Nurse Practitioner | DX: S82.892D Other fracture of left lower leg, subsequent encounter for closed fracture with routine healing (principal); Z13.820 Encounter for screening for osteoporosis; M81.0 Age-related osteoporosis without current pathological fracture | CPT/HCPCS: 77080 ==

== ENCOUNTER 2025-05-09 06:16 | Day surgery (SDC) | payer MEDICARE, BC, SELFPAY ==
[2025-05-05 09:23] LABS: Blood Urea Nitrogen 20 mg/dl (7-17); Calcium 9.3 mg/dl (8.4-10.2); Carbon Dioxide 32 mmol/L (22-30); Chloride 104 mmol/L (98-107); Glucose 87 mg/dl (70-99); Potassium 4.3 mmol/L (3.5-5.1); Sodium 141 mmol/L (135-145); eGFR > 60.00
[2025-05-09] VITALS (8 sets, daily range): BP systolic 107–147; BP diastolic 49–78; BMI 24.0
[2025-05-09] MEDS: NORMOSOL-R/PLASMALYTE-A 1000 IV (13:25)
--- NOTE | 2025-05-10 22:16 | OR.RPT ---
Operative Report
Operative Report
Operative Report
Patient: Sindy Robert

Date of Surgery: 05/09/2025
Surgeon: Del Wiley DPM
Assistants: Del Ceballos DPM
Preoperative Diagnosis:
Left ankle synovitis
Symptomatic hardware, left medial malleolus
Postoperative Diagnosis:
Same as above
Procedures Performed:
Left ankle arthroscopy, extensive (CPT 50187)
Removal of deep hardware, left ankle � two medial malleolar screws (CPT 25549)
Anesthesia:
General anesthesia with 20ccs of 0.5% bupivacaine plain
Hemostasis:
Thigh tourniquet which remained inflated at 300mmHg for the entirety of the procedure
Estimated Blood Loss:
Minimal
Specimens:
None
Complications:
None
Indications for Surgery:
The patient is a 75 year old female who previously underwent left ankle ORIF on 12/06/2023. She initially progressed well, but in recent months developed significant left ankle pain, mechanical symptoms, and clinical findings consistent with
anterior and medial impingement secondary to prominent medial malleolus screws. Conservative measures failed, and surgical treatment consisting of ankle arthroscopy and hardware removal was indicated. Benefits, risks, and alternatives of surgical
management were thoroughly reviewed and patient consented to the procedure.
Procedure in Detail:
The patient was brought to the operating room, placed supine, and all bony prominences were well padded. A time-out was performed confirming the patient, procedure, and operative site. After induction of anesthesia, a well-padded thigh tourniquet
was inflated. The left lower extremity was prepped and draped in the usual sterile fashion.
1. Left Ankle Arthroscopy (67524)
Standard anteromedial and anterolateral portals were established. A 1.9 mm arthroscope was introduced into the ankle joint.
A systematic diagnostic arthroscopy was performed. Findings included significant soft-tissue hypertrophy and synovitis within the anterior ankle joint, as well as scar tissue consistent with mechanical impingement. Articular surfaces were inspected
and found to have moderate fibrillation and degeneration without major chondral defects.
Using an arthroscopic shaver, extensive debridement was carried out, including synovectomy, removal of hypertrophic scar tissue, and clearance of impinging soft tissues. The medial gutter was carefully addressed, and impinging fibers adjacent to the
medial malleolus were thoroughly debrided.
All debris was removed, and the ankle joint was irrigated copiously. No loose bodies were identified.
The arthroscopic instruments were removed.
2. Removal of Deep Hardware � Two Medial Malleolar Screws (15845)
Attention was then directed to the medial aspect of the ankle. An incision was made over the prior medial malleolar approach. Sharp and blunt dissection proceeded through subcutaneous tissue to the level of the hardware with care taken to avoid all
neurovascular structures.
Both screws were visualized, intact, and prominently palpable. Using appropriate screwdrivers, each screw was removed in its entirety without complication. There were no retained fragments, and the underlying bone appeared stable.
The lateral ankle hardware from the prior ORIF was palpated and deemed non-symptomatic; therefore, it was left in place.
The wound was irrigated copiously with sterile saline. Deep tissues were then closed with 2-0 monocryl, subcutaneous tissues were closed with 3-0 monocryl, and skin was closed with 3-0 nylon. Sterile dressings were then applied.
The patient will remain protected weightbearing in a CAM boot. Instructions were given to keep the dressings dry and elevate the extremity to reduce swelling. She will follow up in clinic in 10�14 days for suture removal and reassessment.
== END 2025-05-09 19:05 | disposition home or self-care (01) ==
LOC: SDS 06:16
PROVIDERS: ATTENDING PHYSICIAN Student in an Organized Health Care Education/Training Program; FAMILY PHYSICIAN Nurse Practitioner
DX: M65.972 Unspecified synovitis and tenosynovitis, left ankle and foot (principal)
CPT/HCPCS: 29898; 20680; 36415; 73610; 76000; 80048; 93005